=== PATIENT | male | born 1955 | race Two or more races ===

== ENCOUNTER → 2024-10-31 | Outpatient (BNVA) | payer MEDICARE, MEDICAID, SELFPAY | END | disposition home or self-care (01) | PROVIDERS: PCP Physician Assistant; Referring Provider Physician Assistant; Visit Provider Urology | DX: N40.1 Benign prostatic hyperplasia with lower urinary tract symptoms (principal); N13.8 Other obstructive and reflux uropathy; N32.81 Overactive bladder; Z53.8 Procedure and treatment not carried out for other reasons; E11.9 Type 2 diabetes mellitus without complications; I10 Essential (primary) hypertension; I25.10 Atherosclerotic heart disease of native coronary artery without angina pectoris; E66.9 Obesity, unspecified; Z68.32 Body mass index [BMI] 32.0-32.9, adult; E78.00 Pure hypercholesterolemia, unspecified | CPT/HCPCS: 76872; 99212; G0463 ==

== ENCOUNTER → 2025-01-22 | Outpatient (BNVA) | payer MEDICARE, MEDICAID, SELFPAY | END | disposition home or self-care (01) | PROVIDERS: PCP Physician Assistant; Referring Provider Physician Assistant; Visit Provider Urology | DX: N40.0 Benign prostatic hyperplasia without lower urinary tract symptoms (principal); I10 Essential (primary) hypertension; E11.9 Type 2 diabetes mellitus without complications; E78.00 Pure hypercholesterolemia, unspecified; I25.10 Atherosclerotic heart disease of native coronary artery without angina pectoris; K21.9 Gastro-esophageal reflux disease without esophagitis | CPT/HCPCS: 76872 ==

== ENCOUNTER 2025-10-06 06:50 | Emergency (ER) | payer MEDICARE, MEDICAID, SELFPAY ==
[2025-10-06 07:12] VITALS: BP 186/96; PULSE 72; RESP 18; TEMP 36.5; O2SAT 95
[2025-10-06 07:15] VITALS: BMI 31.7
--- NOTE | 2025-10-06 07:21 | PD.EDADULT ---
ED General RME/HPI General Chief complaint: General Adult/Misc Complain Stated complaint: POSSIBLE HEMORRHIODS Time Seen by Provider: 10/06/25 07:21 Arrival date/time: 10/06/25 06:50 RME / HPI RME / HPI narrative: 69-year-old male with past medical history of triple-vessel bypass with stents currently on Plavix and aspirin, diabetes type 2, BPH, left-sided inguinal hernia, hemorrhoid which has had to be surgically removed in the past who presents to the ER complaining of pain to his rectum which he noticed yesterday along with new onset abdominal pain beginning today. Denies any nausea, vomiting, diarrhea, bright red blood stools, tarry stools, urinary symptoms, fever, chest pain, shortness of breath. Related Data Home Medications ?Medication ?Instructions ?Recorded ?Confirmed buspirone 5 mg tablet 5 mg PO BID 09/11/19 01/22/25 clopidogrel 75 mg tablet 75 mg PO QDAY 09/11/19 01/22/25 hydroxyzine HCl 25 mg tablet 25 mg PO HS PRN Anxiety 09/11/19 01/22/25 isosorbide mononitrate 60 mg 60 mg PO QAM 09/11/19 01/22/25 tablet,extended release 24 hr ranolazine 500 mg tablet,extended 500 mg PO BID 09/11/19 01/22/25 release,12 hr metoprolol tartrate 50 mg tablet 50 mg PO BID 01/23/20 01/22/25 atorvastatin 40 mg tablet 40 mg PO QDAY 07/31/20 01/22/25 duloxetine 20 mg capsule,delayed 20 mg PO BID 07/31/20 01/22/25 release gabapentin 300 mg capsule 300 mg PO BID 03/27/21 01/22/25 glyburide micronized 1.5 mg tablet 1.25 mg PO BID 04/13/22 01/22/25 tamsulosin 0.4 mg capsule 0.4 mg PO QHS 10/27/22 01/22/25 valsartan 320 mg tablet 320 mg PO QDAY 10/27/22 01/22/25 meloxicam 7.5 mg tablet 7.5 mg PO QDAY 09/15/23 01/22/25 oxybutynin chloride 10 mg 10 mg PO QDAY 10/18/24 03/03/25 tablet,extended release 24 hr Previous Rx's ?Medication ?Instructions ?Recorded hydrocortisone acetate 25 mg 25 mg MD QDAY #12 ea 10/06/25 rectal suppository (Anucort-HC) Allergies Allergy/AdvReac Type Severity Reaction Status Date / Time tramadol AdvReac Severe Nausea Verified 10/06/25 06:52 Review of Systems Review of Systems Systems Reviewed: All systems reviewed, normal except as documented Past Medical History Past Medical History NEUROLOGIC: Positive Head Trauma (HIT WITH HAMMER AT WORK ON THE LEFT EYE 2010); Negative Neurological Disorders, Cerebrovascular Accident, Transient Ischemic Attacks (TIA), Dementia, Alzheimer's Disease, Parkinson's Disease, Brain Tumor, Meningitis, Seizures, Epilepsy, Multiple Sclerosis, Cerebral Palsy, Amyotrophic Lateral Sclerosis (ALS/Diane Gehrig's), Guillain-Harned Syndrome, Spina Bifida, Paralysis, Peripheral Neuropathy, Hanson's Palsy, Subdural Hematoma, Migraine, Spinal Cord Injury or Traumatic Brain Injury CARDIAC: Positive Cardiac Disorders, Cardiac Arrhythmia, Angina, Coronary Artery Disease, Hypercholesterolemia (PO MEDS), Edema (BILATERAL LEG SWELLING) and Hypertension (PO MEDS); Negative Myocardial Infarction, Atrial Fibrillation, Heart Murmur, Atherosclerotic Heart Disease, Peripheral Vascular Disease, Aneurysm, Congestive Heart Failure, Congenital Heart Disease, Valvular Heart Disease, Rheumatic Fever, Cardiomyopathy, Pericarditis, Cellulitis, Deep Vein Thrombosis, Hypotension or Varicose Veins RESPIRATORY: Negative Chronic Obstructive Pulmonary Disease (COPD), Asthma, Bronchitis, Emphysema, Pneumonia, Pulmonary Fibrosis, Cystic Fibrosis, Tuberculosis, Pulmonary Embolism, Pulmonary Edema or Sleep Apnea GASTROINTESTINAL: Positive Gastrointestinal Disorders (PT STATES EATING AND NOT DIGESTING WELL.), Gastroesophageal Reflux Disease (PO MEDS) and Obesity; Negative Hepatitis, Cirrhosis, Pancreatitis, Celiac Disease, Gall Bladder Disease, Gastrointestinal Bleed, Esophageal Varices, Sheets's Esophagus, Colitis, Ulcerative Colitis, Diverticulitis, Diverticulosis, Ulcer, Colorectal Cancer, Irritable Bowel, Crohn's Disease, Obstructive Bowel, Hiatal Hernia or Hemorrhoids GENITOURINARY: Positive Benign Prostatic Hyperplasia; Negative Genitourinary Disorders, Renal Disease, Kidney Stones, Polycystic Kidney Disease, Neurogenic Bladder, Inguinal Hernia, Dialysis or Prostate Cancer REPRODUCTIVE: Negative Breast Cancer or Testicular Cancer MUSCULOSKELETAL: Positive Musculoskeletal Disorders and Arthritis (ARMS AND LEGS); Negative Muscular Dystrophy, Myasthenia Gravis, Marfan's Syndrome, Bone Cancer, Rheumatoid Arthritis, Osteoporosis, Degenerative Disk Disease, Gout, Scoliosis, Carpal Tunnel Syndrome, Fibromyalgia, Fractures, Degenerative Joint Disease, Osteomyelitis or Poliovirus ENT: Positive Head Trauma (HIT WITH HAMMER AT WORK ON THE LEFT EYE 2010); Negative Cataracts, Glaucoma, Blind, Retinal Detachment, Macular Degeneration, Ear Infection, Deafness or Eye Prosthesis ENDOCRINE: Positive Endocrine Disorders and Diabetes Mellitus Type 2; Negative Diabetes Mellitus Type 1, Hypoglycemia, Amma's Syndrome, Phi's Disease, Hyperthyroidism, Hypothyroidism, Parathyroid Disease, Pituitary Disease, Systemic Lupus Erythematosus, Syndrome of Inappropriate Antidiuretic Hormone (SIADH), Adrenal Disease or Graves' Disease HEMATOLOGIC: Negative Blood Disorders, Anemia, Leukemia, Hemophilia, Thalassemia, Sickle Cell Disease or Clotting Problems PSYCHO/SOCIAL: Positive Schizophrenia (PREVIOUS-NO LONGER ON MEDICATION), Depression and Anxiety (RESOLVED); Negative Psychiatric Problems, Recreational Drug Use, Bipolar Disorder, Behavior Problems, Self-Mutilation, Attention Deficit Disorder, Attention Deficit Hyperactivity Disorder, Depression, Post Traumatic Stress Disorder or Eating Disorder OTHER HISTORY: Positive Hospitalization (PROSTATE SX 2020); Negative Autoimmune Disease, Down Syndrome, Autism, Developmental Delay, Shingles, Falls, Blood Transfusions, Blood Transfusion Reaction, Anesthesia Reactions, Organ Transplant, Chemotherapy, Radiation Therapy, Hyperbaric Therapy, MRSA, VRSA, Vancomycin-Resistant Enterococci, Human Immunodeficiency Virus (HIV), Chicken Pox, Measles, Mumps, Rubella (Chinese Measles), Pertussis, Clostridium Difficile, Cancer, Breast Cancer, Colorectal Cancer, Lung Cancer, Prostate Cancer or Testicular Cancer Family History FAMILY HISTORY: Positive Family Cardiac Disorders (FATHER HAD HEART PROBLEMS.) and Family Surgery; Negative Family Psychiatric Problems, Family Respiratory Disorders, Family Gastrointestinal Problems, Family Cancer or Family Anesthesia Reaction Surgical History SURGICAL: Positive Cardiac Surgery, Coronary Artery Bypass Graft (2017), Cardiac Catheterization, Angiogram (2019) and Abdominal Surgery; Negative Open Heart Surgery, Valve Replacement, Vascular Surgery, Coronary Stent, Pacemaker, Auto Implanted Cardiovert Defib, Carotid Endarterectomy, Endocrine Surgery, Thyroidectomy, Ear Surgery, Tympanostomy Tube, Eye Surgery, Nose Surgery (PT HAD NOSEBLEEDS), Oral Surgery, Tonsillectomy, Adenoidectomy, Cochlear Implant, Corneal Transplant, Throat Surgery, Tracheostomy, Gastric Bypass Surgery, Gastrostomy, Bowel Surgery, Nephrectomy, Transurethral Resection, Joint Replacement, Amputation, Open Reduction Internal Fixation, Arthroscopy, Neurologic Surgery, Brain Shunt, Vasectomy or Organ Transplant Social History SMOKING STATUS: Never smoker SUBSTANCE USE: does not use ED Exam Narrative Physical exam: Constitutional: Patient alert and oriented. Well appearing. No acute distress. Not toxic appearing. Head: Normocephalic, atraumatic. Eyes: Periorbital regions bilaterally normal to inspection. Conjunctiva clear bilaterally. Sclera anicteric bilaterally. Pupils equal, round, reactive to light bilaterally. Extraocular movements intact bilaterally. Mouth/Throat: Mucous membranes moist. No stridor or muffled voice. No trismus. Handling secretions without difficulty. Airway widely patent. Neck: Supple. Trachea midline. No JVD. No nuchal rigidity. Normal range of motion. Respiratory: Normal effort. No accessory muscle use or respiratory distress. Lungs clear to auscultation bilaterally without rhonchi, wheezes, or crackles. Cardiovascular: RRR. Normal S1/S2. No murmurs or rubs. Radial pulses intact bilaterally. Abdomen: Soft. Positive periumbilical tenderness to palpation. No pulsatile mass. No guarding or rebound. Negative Harrison?s sign. Negative McBurney?s point tenderness. Negative Rovsing?s. Back: No midline tenderness or step-offs. No CVA tenderness to palpation bilaterally. Upper Extremities: No gross deformities. Lower Extremities: No gross deformities. No edema or calf tenderness. Neuro: Speech normal. No gross motor or sensory deficits to upper or lower extremities bilaterally. GCS 15. CN II?XII grossly intact. Skin: Warm, dry, normal color. Psych: Normal affect. Cooperative. Normal insight. Rectal exam: Posterior left region of anal corrugation notes a tender swollen external hemorrhoid which is not thrombosed. No significant warmth or bright red blood per rectum. No induration or discharge. Refrigeration Tech was Kenzie AKERS Course Quality Measures none Orders Category Date Time Status CT Screening NOW Care 10/06/25 07:27 Active EKG (ED ONLY) *Do not use* NOW Care 10/06/25 07:27 Completed Miscellaneous Nursing Order NOW Care 10/06/25 07:28 Active NPO NOW Care 10/06/25 07:27 Active Diet NPO (NOW) Diet 10/06/25 07:[address] abdomen pelvis w con Stat Exams 10/06/25 07:27 Completed EKG (ED Only) Stat Exams 10/06/25 07:27 Draft CBC Stat Lab 11/15/25 07:51 Completed CMP [Comprehensive Metabolic Panel] Stat Lab 10/06/25 07:51 Completed Lipase Stat Lab 10/06/25 07:51 Completed PT [Prothrombin Time with INR] Stat Lab 10/06/25 07:51 Completed Partial Thromboplastin Time Stat Lab 10/06/25 07:51 Completed Troponin I Stat Lab 10/06/25 07:51 Completed Urinalysis, C/S if Indicated Stat Lab 10/06/25 08:57 Completed Ketorolac Inj [Toradol Inj] Med 10/06/25 07:27 Discontinued 30 mg IM X1 ONE Lidocaine Jelly 2% 5 ml [Xylocaine Jelly 2% 5 ml] Med 10/06/25 07:27 Discontinued 2.5 ml TOP X1 ONE Ondansetron Odt [Zofran Odt] Med 10/06/25 07:27 Discontinued 4 mg PO X1 ONE Sodium Chloride 0.9% 1000 ml [Ns] 1,000 ml Med 10/06/25 07:27 Discontinued IV 999 mls/hr Vital Signs Vital signs: Vital Signs Temperature 97.7 F 10/06/25 07:12 Pulse Rate 72 10/06/25 07:12 Respiratory Rate 18 10/06/25 07:12 Blood Pressure 186/96 H 10/06/25 07:12 Pulse Oximetry (%) 95 10/06/25 07:12 Oxygen Delivery Method Room Air 10/06/25 07:12 PROCEDURES: EKG Interpretation #1: Date of EK10/06/25 Time of EK:50 Rate: 76 Interpretation: Interpreted by me EKG Impression: Normal sinus rhythm and Bundle branch block (Right) Additional EKG comment: No ST elevation Discharge Plan Plan Patient Disposition: HOME (Self Care) Patient condition on transfer: Stable Prescriptions/Referrals Prescriptions/Med Rec: New hydrocortisone acetate [Anucort-HC] 25 mg suppository 25 mg MD QDAY Qty: 12 0RF No Action gabapentin 300 mg capsule 300 mg PO BID glyburide micronized 1.5 mg tablet 1.25 mg PO BID valsartan 320 mg tablet 320 mg PO QDAY tamsulosin 0.4 mg capsule 0.4 mg PO QHS oxybutynin chloride 10 mg tablet extended release 24hr 10 mg PO QDAY buspirone 5 mg Tablet 5 mg PO BID clopidogrel 75 mg Tablet 75 mg PO QDAY isosorbide mononitrate 60 mg Tablet Extended Release 24 Hr 60 mg PO QAM hydroxyzine HCl 25 mg Tablet 25 mg PO HS PRN (Reason: Anxiety) ranolazine 500 mg Tablet Extended Release 12 Hr 500 mg PO BID metoprolol tartrate 50 mg Tablet 50 mg PO BID atorvastatin 40 mg Tablet 40 mg PO QDAY duloxetine 20 mg Capsule,Delayed Release(Dr/Ec) 20 mg PO BID meloxicam 7.5 mg Tablet 7.5 mg PO QDAY Referrals: Vic BAI)Esther FNP [Primary Care Provider] - In 1 week Danyelle Hackett MD [Physician, Gastroenterology] - In 1 week Problem List Clinical Impression: Abdominal pain, Cholelithiasis, Hemorrhoid, Transaminitis Patient/Caregiver Discharge Instructions Education Materials: Abdominal Pain, What Are Gallstones, ED Hemorrhoids Additional Instructions: Follow up with your primary medical doctor within 24 hours. Return to the Emergency Room immediately for any new, worsening, continuing symptoms or any concerns at all. Return to the Emergency Room within 24 hours if you are unable to follow up with your primary medical doctor within 24 hours. Your liver enzymes are elevated and you need to have them repeated with your primary doctor. Follow-up with a GI doctor this week as well. Print Language: Yoruba Stand Alone Forms: [employer] Award Info., Patient Portal Info Letter NIC/EMMA Supervising Physician NIC/EMMA Supervising Physician: Dr. Mccall MDM Narrative MDM hospital course (for use when minimal MDM required): MDM: The patient presents with abdominal pain without definite explanation found on evaluation today complicated by hemorrhoid. There were incidental findings which may be contributing to patient's pain such as cholelithiasis however doubt acute hepatobiliary obstruction or cholecystitis, hepatocellular disease however doubt acute hepatitis, diverticulosis-patient advised to follow-up with PCP and GI doctor for these findings for further evaluation. However, there are no signs of peritonitis or other life-threatening or serious etiology. I considered admission; however, given negative work up and imaging, admission is not indicated. The patient appears stable for discharge and has been instructed to return for re-evaluation immediately if the symptoms worsen or change in any way. If the symptoms are not resolved in 24-48 hours, the patient is asked to get rechecked by their PMD or return to the ED. Labs Lab(s) Interpretation(s): CBC with minimally elevated hemoglobin of 16.2 with a normal hematocrit of 49.3 otherwise no severe leukocytosis or thrombocytopenia coags within normal limits, glucose minimally elevated 174, AST minimally elevated 36, ALT minimally elevated 59 otherwise no severe metabolic or electrolyte abnormalities Medication Administration(s) Medication Administration History Discontinued Medications Sodium Chloride (Ns) 1,000 mls @ 999 mls/hr IV .Q1H1M ONE Stop: 10/06/25 08:27 Last Infusion: 10/06/25 12:09 Dose: Infused Documented By: Admin: 10/06/25 10:06 Dose: 999 mls/hr Documented By: Ketorolac Tromethamine (Ketorolac Inj 30 Mg/Ml Vial) 30 mg IM X1 ONE Stop: 10/06/25 07:28 Last Admin: 10/06/25 10:08 Dose: 30 mg Documented By: Lidocaine HCl (Lidocaine Jelly 2% 5 Ml Tube) 2.5 ml TOP X1 ONE Stop: 10/06/25 07:28 Last Admin: 10/06/25 12:09 Dose: 2.5 ml Documented By: Ondansetron HCl (Ondansetron Odt 4 Mg Tabrap) 4 mg PO X1 ONE; Protocol Stop: 10/06/25 07:28 Last Admin: 10/06/25 10:08 Dose: 4 mg Documented By:
--- NOTE | 2025-10-06 07:27 | EKG_ITS ---
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
--- NOTE | 2025-10-06 07:27 | XR_ITS ---
Examination: CT abdomen with intravenous contrast CT pelvis with intravenous contrast 2-D coronal reconstructions 2-D sagittal reconstructions Date and time of exam: October 06, 2025, 10:50 a.m. INDICATIONS: Periumbilical pain clinical diagnosis hemorrhoids CTDI: vol (mGy) 9.45 DLP: (mGycm) 560 Technique: Multiple axial sections of the abdomen and pelvis have been obtained. 64 slice high-resolution scanner used. 3 mm axial sections have been obtained, post intravenous injection 60 cc [id number] 2-D sagittal, coronal reconstructions obtained. Low dose protocols were performed. One or more of the following dose reduction techniques were used; automated exposure control, adjustment of the mA and/or KV according to patient size, use of iterative reconstruction technique. Findings: Liver irregular in contour, enlarged with fatty infiltration Gallstones Spleen not enlarged No pancreatic or adrenal mass Perinephric stranding, no renal or ureteral calculi Aortic calcification no aneurysmal dilatation Normal appendix Colonic diverticulosis, no diverticulitis Moderate prostatomegaly Urinary bladder intact Moderate osteopenia IMPRESSION: Primary hepatocellular disease Cholelithiasis, negative for cholecystitis Normal appendix Colonic diverticulosis, no diverticulitis No rectal wall thickening
[2025-10-06 08:08] LABS: Basophils # (Auto) 0.0 Thou/mm3 (0.0-0.2); Basophils % (Auto) 1 % (0-2.5); Eosinophils # (Auto) 0.1 Thou/mm3 (0.0-0.5); Eosinophils % (Auto) 2 % (0-10); Hematocrit 49.3 % (41.0-53.0); Hemoglobin 16.2 g/dL (13.5-16.0); Immature Granulocytes Auto 0.03 Thou/mm3 (0.00-0.00); Lymphocytes # (Auto) 1.2 Thou/mm3 (1.0-4.8); Lymphocytes % (Auto) 22 % (10-50); Mean Corpuscular HGB Conc 32.9 g/dl (31.0-37.0); Mean Corpuscular Hemoglobin 30.5 pg (25.0-35.0); Mean Corpuscular Volume 93 fL (80-100); Monocytes # (Auto) 0.5 Thou/mm3 (0.0-0.8); Monocytes % (Auto) 9 % (0-12); Neutrophils # (Auto) 3.6 Thou/mm3 (1.8-7.7); Neutrophils % (Auto) 66 % (37-80); Nucleated Red Blood Cell # 0.00 Thou/mm3 (0.00-0.00); Nucleated Red Blood Cell % 0 /100 WBC (0); Platelet Count 195 Thou/mm3 (140-440); RDW Standard Deviation 43.6 fL (35.1-43.9); Red Blood Count 5.32 Miln/mm3 (4.50-5.90); White Blood Count 5.5 Thou/mm3 (3.8-10.6)
[2025-10-06 08:29] LABS: Alanine Aminotransferase 59 U/L (10-49); Albumin, Serum 4.7 gm/dL (3.4-4.8); Albumin/Globulin Ratio 2.2 (1.2-2.2); Alkaline Phosphatase 95 U/L (46-116); Anion Gap 11 (7-16); Aspartate Amino Transferase 36 U/L (0-34); BUN/Creatinine Ratio 18 Ratio (12-20); Bilirubin,Total 1.1 mg/dL (0.3-1.2); Blood Urea Nitrogen 14 mg/dL (9-23); Calcium 9.4 mg/dL (8.3-10.6); Calcium (Corrected) 9.4 mg/dL (8.5-10.1); Carbon Dioxide 26.5 mMol/L (20.0-31.0); Chloride 105 mMol/L (98-107); Creatinine (Component) 0.8 mg/dL (0.6-1.3); Estimated Creatinine Clearance 86.4 mL/min (>60); Globulin 2.1 gm/dL (2.3-3.5); Glucose 174 mg/dL (74-106); Lipase 28 U/L (12-53); Osmolality,Calculated 287 (275-295); Potassium 3.9 mMol/L (3.4-5.1); Sodium 142 mMol/L (136-145); Total Protein 6.8 gm/dL (5.7-8.2); Troponin I < 0.020 ng/mL (0.0-0.045); eGFR > 60 See Note
[2025-10-06 08:35] LABS: INR 1.0 (0.9-1.3); Partial Thromboplastin Time 28.5 Seconds (22.0-36.0); Prothrombin Time 10.4 Seconds (9.0-12.2)
[2025-10-06 09:08] LABS: Collection Type, Urine Voided; Squamous Epithelial Cell,Urine 0 /hpf (0-5)
[2025-10-06 09:27] LABS: Bilirubin,Urine Negative (Negative); Blood,Urine Negative (Negative); Clarity,Urine Clear (Clear/Hazy); Color,Urine Yellow (Lt Yel-Yel); Culture Indicated,Urine Not Indicated; Glucose, Urine Negative (Negative); Ketones,Urine Negative (Negative); Leukocyte Esterase,Urine Negative (Negative); Nitrite,Urine Negative (Negative); PH,Urine 5.5 (5.0-7.0); Protein,Urine Trace (Neg - Trace); RBC,Urine 3 /hpf (0-3); Specific Gravity,Urine 1.023 (1.001-1.035); Urobilinogen,Urine Negative mg/dL (0.0-1.0); WBC,Urine 1 /hpf (0-5)
[2025-10-06] MEDS: SODIUM CHLORIDE 0.9% 1000 ML 1,000 ML 999 ML IV (10:06)
[2025-10-06] MEDS: KETOROLAC INJ 30 MG/ML VIAL IM (10:08)
[2025-10-06] MEDS: ONDANSETRON ODT 4 MG TABRAP PO (10:08)
[2025-10-06] MEDS: LIDOCAINE JELLY 2% 5 ML TUBE 2.5 ML TOP (12:09)
== END 2025-10-06 15:28 | disposition home or self-care (01) ==
PROVIDERS: Emergency Provider Physician Assistant; PCP Nurse Practitioner Primary Care
DX: R74.01 Elevation of levels of liver transaminase levels (principal); K64.9 Unspecified hemorrhoids; K80.20 Calculus of gallbladder without cholecystitis without obstruction; E11.9 Type 2 diabetes mellitus without complications; I45.10 Unspecified right bundle-branch block; N40.0 Benign prostatic hyperplasia without lower urinary tract symptoms; Z79.02 Long term (current) use of antithrombotics/antiplatelets; Z79.84 Long term (current) use of oral hypoglycemic drugs
CPT/HCPCS: 36415; 74177; 80053; 81001; 83690; 84484; 85025; 85610; 85730; 93005; 96360; 96361; 96372; 99284; A4649; J1885; J7030; Q0162; Q9967; A9270